=== PATIENT | female | born 1985 | race Caucasian/White ===

== ENCOUNTER 2017-01-16 06:52 | Emergency (ER) | payer OTHER ==
[2017-01-16 07:57] LABS: BASO % 0.3 % (0.0-1.0); EOS # 0.1 K/mm3 (0.0-0.50); EOS % 0.6 % (0.0-3.0); LARGE UNSTAINED CELL # 0.1 K/mm3 (0.0-0.4); LARGE UNSTAINED CELL % 1.2 % (0.0-4.0); LYMPH # 0.8 K/mm3 (1.5-4.5); LYMPH % 8.2 % (24.0-44.0); MEAN CORPUSCULAR HEMOGLOBIN 28.8 pg (27.0-33.0); MEAN CORPUSCULAR HGB CONC 33.1 g/dl (32.0-36.5); MONO # 0.5 K/mm3 (0.0-0.8); MONO % 4.9 % (0.0-5.0); NEUTROPHILS # 7.8 K/mm3 (1.8-7.7); NEUTROPHILS % 84.7 % (36.0-66.0); PLATELET COUNT, AUTOMATED 257 k/mm3 (150-450); RED CELL DISTRIBUTION WIDTH 12.2 % (11.5-14.5); WHITE BLOOD COUNT 9.2 K/mm3 (4.0-10.0)
[2017-01-16 08:37] LABS: ANION GAP 9 MEQ/L (8-16); BLOOD UREA NITROGEN 9 MG/DL (7-18); CALCIUM LEVEL 8.4 MG/DL (8.5-10.1); CARBON DIOXIDE LEVEL 25 MEQ/L (21-32); CHLORIDE LEVEL 106 MEQ/L (98-107); CREATININE FOR GFR 0.79 MG/DL (0.55-1.02); GLOMERULAR FILTRATION RATE > 60.0 (>60); GLUCOSE, FASTING 87 MG/DL (70-105); HCG, SERUM QUANTITATIVE 20236 MIU/ML; SODIUM LEVEL 140 MEQ/L (136-145)
[2017-01-16] MEDS ORDERED: ACETAMINOPHEN TAB 650MG DOSE (2X325MG) As Ordered ONE (09:11)
--- NOTE | 2017-01-16 09:38 | REP ---
FIRST TRIMESTER ULTRASOUND: Real-time sonographic evaluation of the pelvis is performed utilizing transabdominal and endovaginal technique. The uterus measures 10.2 x 4.6 x 7.8 cm. The endometrium is markedly heterogeneous and thickened measuring 21 mm in maximum AP diameter. There is no intrauterine gestational sac identified. The right ovary measures 3.3 x 3.1 x 4.1 cm and the left ovary 3.9 x 2.0 x 3.4 cm. There is blood flow seen in each ovary with duplex Doppler evaluation, with no torsion, RI of the right ovary 0.56 and the left ovary 0.65. Cystic structure in the right ovary measures 2.8 x 2.6 x 2.5 cm probably representing a corpus luteum. A fibroid is seen in the uterus posteriorly measuring 2.9 x 2.6 x 2.7 cm. IMPRESSION: Markedly thickened heterogeneous endometrial echo complex. Small cystic structure, right ovary 2.8 x 2.6 x 2.5 cm may represent a corpus luteum. No other evidence of adnexal mass or free fluid. Findings may represent missed , very early intrauterine or ectopic . Suggest correlation with serial quantitative beta HCG values and followup ultrasound as necessary. Signed by Abdias Laws MD 01/16/2017 04:55 P
--- NOTE | 2017-01-16 10:58 | EDDOCDS ---
Physician Documentation [facility] Name: Elsa Gaston Age: 31 yrs Sex: Female : 1985 Arrival Date: 01/16/2017 Time: 06:52 Bed 15 Private MD: Disposition: 01/16/17 10:21 Discharged to Home/Self Care. Impression: Threatened . - Condition is Stable. - Discharge Instructions: Threatened Miscarriage, Pelvic Rest. - Medication Reconciliation, Local Pharmacy Hours form. - Follow up: MICHAEL Bowman; When: Tomorrow; Reason: Recheck today's complaints. - Problem is new. - Symptoms are unchanged. - Notes: You were seen in the ED for vaginal bleeding in the setting of your early and likely miscarriage. Bloodwork showed no acute findings. Ultrasound showed a thickened endometrium of the uterus and a possible copus luteum cyst but no other acute findings. We have discussed the case with Gabi Melgoza OB who has recommended that this is likely a miscarriage and you may return home to be seen by them at tomorrow's appointment. Rest, put nothing in the vagina. Return to the ED for any worsening abdominal pain, hgeavy bleeding, soaking a pad an hour, lightheadedness, loss of consciousness or any other concerns. Historical: - Allergies: no known allergies; - Home Meds: 1. Vitamin Oral once daily - PMHx: none; - PSHx: none; - Social history: Smoking status: Patient states was never smoker of tobacco. No barriers to communication noted, The patient speaks fluent Ukrainian, Speaks appropriately for age. - Family history: Not pertinent. - : The pt / caregiver states he / she is not on anticoagulants. Home medication list is obtained from the patient. - Exposure Risk Screening:: None identified. 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 6 in. (167.64 cm); Pain 0/10; 10:02 BP 104 / 60; Pulse 68; Resp 18; Pulse Ox 100% ; Pain 2/10; hs1 10:57 BP 102 / 69; Pulse 87; Resp 18; Temp 97.8; Pulse Ox 98% ; Pain 2/10; hs1 07:04 Body Mass Index 23.73 (66.68 kg, 167.64 cm) kc3 MDM: 07:40 IV Saline Lock ordered. br1 07:41 Set up pelvic ordered. br1 07:41 Undress patient ordered. br1 07:41 CBC with Diff Ordered. EDMS 07:41 BMP Ordered. EDMS 07:41 Hcg, Serum Quantitative Ordered. EDMS 07:41 Type & Screen Ordered. EDMS 07:42 GC & Chlamydia Amplification Ordered. EDMS 07:42 Wet Prep Ordered. EDMS 08:07 Ultrasound 1st Trimester Ordered. EDMS 08:11 Financial registration complete. lg 08:22 [facility] Payment Agreement was scanned into [employer] and attached to record. lg 08:50 CBC with Diff Reviewed. br1 08:50 BMP Reviewed. br1 08:50 Type & Screen Reviewed. br1 08:50 Hcg, Serum Quantitative Reviewed. br1 08:50 Wet Prep Reviewed. br1 08:53 TRANSVAGINAL US Ordered. EDMS 08:53 DUPLEX SCAN LIMITED (DOPPLER) Ordered. EDMS 09:11 Acetaminophen Tablet 650 mg PO once ordered. br1 09:55 GC & Chlamydia Amplification Reviewed. br1 Administered Medications: 09:13 Drug: Acetaminophen 650 mg [acetaminophen 325 mg tablet (2 tabs)] Route: PO; hs1 10:08 Follow up: Response: Pain is decreased hs1 Signatures: Dispatcher [employer] EDMS Benny Hearn, Reg Reg lg Devonte Hemphill MD MD br1 Siobhan Iglesias RN RN hs1 Luda Saleem,SUNDEEP RN kc3 The chart was reviewed and I authenticate all verbal orders and agree with the evaluation and treatment provided.Attachments: 08:22 [facility] Payment Agreement lg MTDD
--- NOTE | 2017-01-16 10:58 | EDDOCDS ---
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 Pt kc3 reports "expecting a miscarriage as my HCG numbers have been decreasing." Pt also reports has been having light bleeding since . Pt reports 8 weeks . Risk factors: The patient reports no loss of conciousness prior to arrival. This patient has not had a hysterectomy. This patient has not begun menopause. Adult Sepsis Screening: The patient does not have new or worsening altered mentation. Patient's respiratory rate is less than 22. Systolic blood pressure is greater than 100. Patient has a qSOFA score of 0- Negative Sepsis Screen. Suicide/Homicide risk assessment- the patient denies having any suicidal and/or homicidal ideations and does not present with any other emotional, behavioral or mental health complaints. 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 Transition of care: patient was not received from another setting of care. 07:02 Acuity: DEB Level 3 kc3 07:02 Method Of Arrival: Walkin/Carried/Asstd kc3 Triage Assessment: 07:06 General: Appears in no apparent distress, comfortable. Pain: Denies pain. Respiratory: kc3 Respiratory effort is even, unlabored. : Reports cramping vaginal bleeding that is bright red with clots heavy flow. 10:57 Pt Declines HIV testing. 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 Vitamin Oral once daily - PMHx: none; - PSHx: none; - Social history: Smoking status: Patient states was never smoker of tobacco. No barriers to communication noted, The patient speaks fluent Malian, Speaks appropriately for age. - Family history: Not pertinent. - : The pt / caregiver states he / she is not on anticoagulants. Home medication list is obtained from the patient. - Exposure Risk Screening:: None identified. Screenin:23 Screening information is obtained from the patient. Fall risk: No risks identified. hs1 Assistance ADL's: requires no assistance with activities of daily living. Abuse/DV Screen: The patient / caregiver reports he/she is: not in a situation that causes fear, pain or injury. Nutritional screening: No deficits noted. Advance Directives: There is no active DNR order. home support is adequate. Assessment: 07:22 General: Appears in no apparent distress, comfortable, Behavior is anxious, appropriate hs1 for age, cooperative. Neurological: No deficits noted. Respiratory: Airway is patent Respiratory effort is even, unlabored, Respiratory pattern is regular, symmetrical. : Reports vaginal bleeding that is bright red with clots heavy flow. Derm: Skin is pink, warm & dry. normal. 08:30 General: Appears in no apparent distress, Behavior is appropriate for age, cooperative. hs1 Respiratory: No deficits noted. : Reports vaginal bleeding that is bright red heavy flow. Derm: Skin is pink, warm & dry. normal. 09:13 General: Appears in no apparent distress, Behavior is appropriate for age, cooperative. hs1 Pain: Location: pelvis Pain currently is 3 out of 10 on a pain scale. Quality of pain is described as crampy. Respiratory: No deficits noted. : Reports vaginal bleeding that is with clots heavy flow. Derm: Skin is pink, warm & dry. normal. 10:03 General: Appears in no apparent distress, comfortable, Behavior is anxious, hs1 cooperative, Patient awaiting test results, appears comfortable somewhat anxious at times. Patient states cramping comes and goes. . Respiratory: Airway is patent Respiratory effort is even, unlabored, Respiratory pattern is regular, symmetrical. GI: Abdomen is flat, non- distended Bowel sounds present X 4 quads. Derm: Skin is pink, warm & dry. normal. 10:55 General: Appears in no apparent distress, comfortable, Behavior is cooperative. hs1 Respiratory: No deficits noted. : Reports vaginal bleeding that is bright red with clots heavy flow. Vital Signs: 07:04 BP 122 / 71; Pulse 82; Resp 18; Temp 98.4(O); Pulse Ox 100% on R/A; Weight 66.68 kg; kc3 Height 5 ft. 6 in. (167.64 cm); Pain 0/10; 10:02 BP 104 / 60; Pulse 68; Resp 18; Pulse Ox 100% ; Pain 2/10; hs1 10:57 BP 102 / 69; Pulse 87; Resp 18; Temp 97.8; Pulse Ox 98% ; Pain 2/10; hs1 07:04 Body Mass Index 23.73 (66.68 kg, 167.64 cm) [facility] Vitals: 07:04 Log In Time: January 16, 2017 at 07:04. 3 ED Course: 06:53 Patient visited by Sofie Ramos Reg. hs2 06:53 Patient moved to Waiting hs2 07:03 Triage Initiated kc3 07:07 Patient moved to MTA Wait kc3 07:11 Patient moved to 15 hs1 07:23 The patient / caregiver is instructed regarding the plan of care and ED course. hs1 07:39 Devonte Hemphill MD is Attending Physician. br1 07:40 Inserted saline lock: 20 gauge in left antecubital area and blood collected. The hs1 patient tolerated the procedure well. 07:46 Patient visited by Siobhan Iglesias RN. hs1 07:46 Hcg, Serum Quantitative Sent. hs1 07:46 Type & Screen Sent. hs1 07:46 BMP Sent. hs1 07:46 CBC with Diff Sent. hs1 07:51 Patient visited by Devonte Hemphill MD. br1 08:00 Assist provider with pelvic exam: Set up pelvic tray. Specimens sent to lab. Performed hs1 by Devonte Hemphill MD Patient tolerated well. 08:09 GC & Chlamydia Amplification Sent. hs1 08:10 Wet Prep Sent. hs1 08:22 Patient name changed from Elsa\\S\\\\S\\Ly\\S\\ to Elsa\\S\\Kat\\S\\Ly. EDMS 08:22 [facility] Payment Agreement was scanned into [employer] and attached to record. lg 08:30 Patient visited by Siobhan Iglesias RN. hs1 08:40 Patient name changed from Elsa\\S\\Kat\\S\\Ly\\S\\ to Elsa\\S\\Kat\\S\\Marilin. EDMS 09:13 Patient visited by Siobhan Iglesias RN. hs1 10:03 Patient visited by Siobhan Iglesias RN. hs1 10:04 Ultrasound 1st Trimester Returned. EDMS 10:21 Gabi Melgoza OB is Referral Physician. br1 10:54 Discontinued IV lock intact, bleeding controlled, pressure dressing applied, No hs1 redness/swelling at site. Administered Medications: 09:13 Drug: Acetaminophen 650 mg [acetaminophen 325 mg tablet (2 tabs)] Route: PO; hs1 10:08 Follow up: Response: Pain is decreased hs1 Order Results: Lab Order: CBC with Diff; SPEC'M 01/16/17 07:40 Test: WHITE BLOOD COUNT; Value: 9.2; Range: 4.0-10.0; Units: K/mm3; Status: F Test: RED BLOOD COUNT; Value: 4.28; Range: 4.00-5.40; Units: M/mm3; Status: F Test: HEMOGLOBIN; Value: 12.3; Range: 12.0-16.0; Units: g/dl; Status: F Test: HEMATOCRIT; Value: 37.2; Range: 36.0-47.0; Units: %; Status: F Test: MEAN CORPUSCULAR VOLUME; Value: 87.0; Range: 80.0-96.0; Units: fl; Status: F Test: MEAN CORPUSCULAR HEMOGLOBIN; Value: 28.8; Range: 27.0-33.0; Units: pg; Status: F Test: MEAN CORPUSCULAR HGB CONC; Value: 33.1; Range: 32.0-36.5; Units: g/dl; Status: F Test: RED CELL DISTRIBUTION WIDTH; Value: 12.2; Range: 11.5-14.5; Units: %; Status: F Test: PLATELET COUNT, AUTOMATED; Value: 257; Range: 150-450; Units: k/mm3; Status: F Test: NEUTROPHILS %; Value: 84.7; Range: 36.0-66.0; Abnormal: Above high normal; Units: %; Status: F Test: LYMPH %; Value: 8.2; Range: 24.0-44.0; Abnormal: Below low normal; Units: %; Status: F Test: MONO %; Value: 4.9; Range: 0.0-5.0; Units: %; Status: F Test: EOS %; Value: 0.6; Range: 0.0-3.0; Units: %; Status: F Test: BASO %; Value: 0.3; Range: 0.0-1.0; Units: %; Status: F Test: LARGE UNSTAINED CELL %; Value: 1.2; Range: 0.0-4.0; Units: %; Status: F Test: NEUTROPHILS #; Value: 7.8; Range: 1.8-7.7; Abnormal: Above high normal; Units: K/mm3; Status: F Test: LYMPH #; Value: 0.8; Range: 1.5-4.5; Abnormal: Below low normal; Units: K/mm3; Status: F Test: MONO #; Value: 0.5; Range: 0.0-0.8; Units: K/mm3; Status: F Test: EOS #; Value: 0.1; Range: 0.0-0.50; Units: K/mm3; Status: F Test: BASO #; Value: 0.0; Range: 0.0-0.2; Units: K/mm3; Status: F Test: LARGE UNSTAINED CELL #; Value: 0.1; Range: 0.0-0.4; Units: K/mm3; Status: F Lab Order: [facility]; SPEC'M 01/16/17 07:40 Test: GLUCOSE, FASTING; Value: 87; Range: 70-105; Units: MG/DL; Status: F Test: BLOOD UREA NITROGEN; Value: 9; Range: 7-18; Units: MG/DL; Status: F Test: CREATININE FOR GFR; Value: 0.79; Range: 0.55-1.02; Units: MG/DL; Status: F Test: GLOMERULAR FILTRATION RATE; Value: > 60.0; Range: >60; Status: F Test: SODIUM LEVEL; Value: 140; Range: 136-145; Units: MEQ/L; Status: F Test: POTASSIUM SERUM; Value: 4.0; Range: 3.5-5.1; Units: MEQ/L; Status: F Test: CHLORIDE LEVEL; Value: 106; Range: 98-107; Units: MEQ/L; Status: F Test: CARBON DIOXIDE LEVEL; Value: 25; Range: 21-32; Units: MEQ/L; Status: F Test: ANION GAP; Value: 9; Range: 8-16; Units: MEQ/L; Status: F Test: CALCIUM LEVEL; Value: 8.4; Range: 8.5-10.1; Abnormal: Below low normal; Units: MG/DL; Status: F Test Note: ; Units are mL/min/1.73 m2 Chronic Kidney Disease Staging per NKF: Stage I & II GFR >=60 Normal to Mildly Decreased Stage III GFR 30-59 Moderately Decreased Stage IV GFR 15-29 Severely Decreased Stage V GFR <15 Very Little GFR Left ESRD GFR <15 on [employer] Lab Order: Type & Screen; [facility]01/16/17 07:40 Test: BLOOD TYPE; Value: O POS; Status: F Test: AB SCREEN (INDIRECT DAVID)VIS; Value: NEGATIVE; Status: F Lab Order: Hcg, Serum Quantitative; 01/16/17 07:40 Test: HCG, SERUM QUANTITATIVE; Value: ; Units: MIU/ML; Status: F Test Note: ; GESTATIONAL AGE APPROXIMATE HCG RANGE (MIU/ML) 0.2-1 WEEK 5-50 1-2 WEEKS 50-500 2-3 WEEKS 100-5,000 3-4 WEEKS 500-10,000 4-5 WEEKS 1,000-50,000 5-6 WEEKS 10,000-100,000 6-8 WEEKS 15,000-200,000 2-3 MONTHS 10,000-100,000 NON FEMALES LESS THAN 3.0 Patient samples may contain human heterophilic antibodies that could react with immunoassays to give falsely elevated or depressed results. This assay has been designed to minimize interference from heterophilic antibodies. Elevated hCG levels have also been associated with trophoblastic disease and nontrophoblastic neoplasms. The possibility of having these diseases should be considered before a diagnosis of is made. This test is not intended for use as a surrogate marker for aiding in the diagnosis or monitoring the treatment of cancer patients. [employer] methodology. Lab Order: Wet Prep; [facility]01/16/17 08:08 Test: WET PREP; Value: WET PREP RESULT; Status: F Test: WET PREP; Value: FEW EPITHELIAL CELLS PRESENT; Status: F Test: WET PREP; Value: FEW WBC; Status: F Test: WET PREP; Value: MANY RBC; Status: F Test: WET PREP; Value: FEW LONG RODS PRESENT; Status: F Lab Order: GC & Chlamydia Amplification; SPEC'M 01/16/17 08:08 Test: CHLAMYDIA DNA AMPLIFICATION; Value: NEGATIVE; Range: NEGATIVE; Status: F Test: GC DNA AMPLIFICATION; Value: NEGATIVE; Range: NEGATIVE; Status: F Radiology Order: Ultrasound 1st Trimester Test: Ultrasound 1st Trimester REASON FOR EXAMINATION: vag bleeding eval for IUP; ; FIRST TRIMESTER ULTRASOUND:; ; Real-time sonographic evaluation of the pelvis is performed utilizing; transabdominal and endovaginal technique.; ; The uterus measures 10.2 x 4.6 x 7.8 cm. The endometrium is markedly; heterogeneous and thickened measuring 21 mm in maximum AP diameter. There is no; intrauterine gestational sac identified. The right ovary measures 3.3 x 3.1 x; 4.1 cm and the left ovary 3.9 x 2.0 x 3.4 cm. There is blood flow seen in each; ovary with duplex Doppler evaluation, with no torsion, RI of the right ovary 0.56; and the left ovary 0.65. Cystic structure in the right ovary measures 2.8 x 2.6; x 2.5 cm probably representing a corpus luteum. A fibroid is seen in the uterus; posteriorly measuring 2.9 x 2.6 x 2.7 cm.; ; IMPRESSION:; Markedly thickened heterogeneous endometrial echo complex. Small cystic; structure, right ovary 2.8 x 2.6 x 2.5 cm may represent a corpus luteum. No other; evidence of adnexal mass or free fluid. Findings may represent missed ,; very early intrauterine or ectopic . Suggest correlation with; serial quantitative beta HCG values and followup ultrasound as necessary.; ; ; ; Unreviewed; Outcome: 10:21 Discharge ordered by Provider. br1 10:55 Discharge Assessment: Patient awake, alert and oriented x 3. No cognitive and/or hs1 functional deficits noted. Patient verbalized understanding of disposition instructions. patient administered narcotics - no. The following High Risk Discharge criteria are identified: None. Discharged to home ambulatory. Condition: stable. Discharge instructions given to patient, Instructed on discharge instructions, follow up and referral plans. medication usage, Pelvic rest. Patient also offered bereavement packed on miscarriage which patient declines at this time. Patient is aware of diagnosis and prognosis and states good support system at home in place. Ultrasound Study completed. Property sent home with patient. 10:58 Patient left the ED. hs1 Signatures: Dispatcher [employer] Benny Rojas, Reg Reg lg Devonte Hemphill MD MD br1 Siobhan Iglesias RN RN hs1 Luda Saleem RN RN kc3 Sofie Ramos, Reg Reg hs2 MTDD
--- NOTE | 2017-01-18 11:59 | EDDOCDS ---
Physician Documentation [facility] Name: Elsa Gaston Age: 31 yrs Sex: Female : 1985 Arrival Date: 01/16/2017 Time: 06:52 Bed 15 Private MD: Disposition: 01/16/17 10:21 Discharged to Home/Self Care. Impression: Threatened . - Condition is Stable. - Discharge Instructions: Threatened Miscarriage, Pelvic Rest. - Medication Reconciliation, Local Pharmacy Hours form. - Follow up: MICHAEL Bowman; When: Tomorrow; Reason: Recheck today's complaints. - Problem is new. - Symptoms are unchanged. - Notes: You were seen in the ED for vaginal bleeding in the setting of your early and likely miscarriage. Bloodwork showed no acute findings. Ultrasound showed a thickened endometrium of the uterus and a possible copus luteum cyst but no other acute findings. We have discussed the case with Gabi Melgoza OB who has recommended that this is likely a miscarriage and you may return home to be seen by them at tomorrow's appointment. Rest, put nothing in the vagina. Return to the ED for any worsening abdominal pain, hgeavy bleeding, soaking a pad an hour, lightheadedness, loss of consciousness or any other concerns. Historical: - Allergies: no known allergies; - Home Meds: 1. Vitamin Oral once daily - PMHx: none; - PSHx: none; - Social history: Smoking status: Patient states was never smoker of tobacco. No barriers to communication noted, The patient speaks fluent Georgian, Speaks appropriately for age. - Family history: Not pertinent. - : The pt / caregiver states he / she is not on anticoagulants. Home medication list is obtained from the patient. - Exposure Risk Screening:: None identified. 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 6 in. (167.64 cm); Pain 0/10; 10:02 BP 104 / 60; Pulse 68; Resp 18; Pulse Ox 100% ; Pain 2/10; hs1 10:57 BP 102 / 69; Pulse 87; Resp 18; Temp 97.8; Pulse Ox 98% ; Pain 2/10; hs1 07:04 Body Mass Index 23.73 (66.68 kg, 167.64 cm) kc3 MDM: 07:40 IV Saline Lock ordered. br1 07:41 Set up pelvic ordered. br1 07:41 Undress patient ordered. br1 07:41 CBC with Diff Ordered. EDMS 07:41 BMP Ordered. EDMS 07:41 Hcg, Serum Quantitative Ordered. EDMS 07:41 Type & Screen Ordered. EDMS 07:42 GC & Chlamydia Amplification Ordered. EDMS 07:42 Wet Prep Ordered. EDMS 08:07 Ultrasound 1st Trimester Ordered. EDMS 08:11 Financial registration complete. lg 08:22 [facility] Payment Agreement was scanned into [employer] and attached to record. lg 08:50 CBC with Diff Reviewed. br1 08:50 BMP Reviewed. br1 08:50 Type & Screen Reviewed. br1 08:50 Hcg, Serum Quantitative Reviewed. br1 08:50 Wet Prep Reviewed. br1 08:53 TRANSVAGINAL US Ordered. EDMS 08:53 DUPLEX SCAN LIMITED (DOPPLER) Ordered. EDMS 09:11 Acetaminophen Tablet 650 mg PO once ordered. br1 09:55 GC & Chlamydia Amplification Reviewed. br1 Administered Medications: 09:13 Drug: Acetaminophen 650 mg [acetaminophen 325 mg tablet (2 tabs)] Route: PO; hs1 10:08 Follow up: Response: Pain is decreased hs1 Signatures: Dispatcher [employer] EDMS Benny Hearn, Reg Reg lg Devonte Hemphill MD MD br1 Siobhan Iglesias RN RN hs1 Luda Saleem,SUNDEEP RN kc3 The chart was reviewed and I authenticate all verbal orders and agree with the evaluation and treatment provided.Attachments: 08:22 [facility] Payment Agreement lg Chart Complete MTDD
--- NOTE | 2017-01-18 11:59 | EDDOCDS ---
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 Pt kc3 reports "expecting a miscarriage as my HCG numbers have been decreasing." Pt also reports has been having light bleeding since . Pt reports 8 weeks . Risk factors: The patient reports no loss of conciousness prior to arrival. This patient has not had a hysterectomy. This patient has not begun menopause. Adult Sepsis Screening: The patient does not have new or worsening altered mentation. Patient's respiratory rate is less than 22. Systolic blood pressure is greater than 100. Patient has a qSOFA score of 0- Negative Sepsis Screen. Suicide/Homicide risk assessment- the patient denies having any suicidal and/or homicidal ideations and does not present with any other emotional, behavioral or mental health complaints. 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 Transition of care: patient was not received from another setting of care. 07:02 Acuity: DEB Level 3 kc3 07:02 Method Of Arrival: Walkin/Carried/Asstd kc3 Triage Assessment: 07:06 General: Appears in no apparent distress, comfortable. Pain: Denies pain. Respiratory: kc3 Respiratory effort is even, unlabored. : Reports cramping vaginal bleeding that is bright red with clots heavy flow. 10:57 Pt Declines HIV testing. 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 Vitamin Oral once daily - PMHx: none; - PSHx: none; - Social history: Smoking status: Patient states was never smoker of tobacco. No barriers to communication noted, The patient speaks fluent Ivorian, Speaks appropriately for age. - Family history: Not pertinent. - : The pt / caregiver states he / she is not on anticoagulants. Home medication list is obtained from the patient. - Exposure Risk Screening:: None identified. Screenin:23 Screening information is obtained from the patient. Fall risk: No risks identified. hs1 Assistance ADL's: requires no assistance with activities of daily living. Abuse/DV Screen: The patient / caregiver reports he/she is: not in a situation that causes fear, pain or injury. Nutritional screening: No deficits noted. Advance Directives: There is no active DNR order. home support is adequate. Assessment: 07:22 General: Appears in no apparent distress, comfortable, Behavior is anxious, appropriate hs1 for age, cooperative. Neurological: No deficits noted. Respiratory: Airway is patent Respiratory effort is even, unlabored, Respiratory pattern is regular, symmetrical. : Reports vaginal bleeding that is bright red with clots heavy flow. Derm: Skin is pink, warm & dry. normal. 08:30 General: Appears in no apparent distress, Behavior is appropriate for age, cooperative. hs1 Respiratory: No deficits noted. : Reports vaginal bleeding that is bright red heavy flow. Derm: Skin is pink, warm & dry. normal. 09:13 General: Appears in no apparent distress, Behavior is appropriate for age, cooperative. hs1 Pain: Location: pelvis Pain currently is 3 out of 10 on a pain scale. Quality of pain is described as crampy. Respiratory: No deficits noted. : Reports vaginal bleeding that is with clots heavy flow. Derm: Skin is pink, warm & dry. normal. 10:03 General: Appears in no apparent distress, comfortable, Behavior is anxious, hs1 cooperative, Patient awaiting test results, appears comfortable somewhat anxious at times. Patient states cramping comes and goes. . Respiratory: Airway is patent Respiratory effort is even, unlabored, Respiratory pattern is regular, symmetrical. GI: Abdomen is flat, non- distended Bowel sounds present X 4 quads. Derm: Skin is pink, warm & dry. normal. 10:55 General: Appears in no apparent distress, comfortable, Behavior is cooperative. hs1 Respiratory: No deficits noted. : Reports vaginal bleeding that is bright red with clots heavy flow. Vital Signs: 07:04 BP 122 / 71; Pulse 82; Resp 18; Temp 98.4(O); Pulse Ox 100% on R/A; Weight 66.68 kg; kc3 Height 5 ft. 6 in. (167.64 cm); Pain 0/10; 10:02 BP 104 / 60; Pulse 68; Resp 18; Pulse Ox 100% ; Pain 2/10; hs1 10:57 BP 102 / 69; Pulse 87; Resp 18; Temp 97.8; Pulse Ox 98% ; Pain 2/10; hs1 07:04 Body Mass Index 23.73 (66.68 kg, 167.64 cm) [facility] Vitals: 07:04 Log In Time: January 16, 2017 at 07:04. 3 ED Course: 06:53 Patient visited by Sofie Ramos Reg. hs2 06:53 Patient moved to Waiting hs2 07:03 Triage Initiated kc3 07:07 Patient moved to MTA Wait kc3 07:11 Patient moved to 15 hs1 07:23 The patient / caregiver is instructed regarding the plan of care and ED course. hs1 07:39 Devonte Hemphill MD is Attending Physician. br1 07:40 Inserted saline lock: 20 gauge in left antecubital area and blood collected. The hs1 patient tolerated the procedure well. 07:46 Patient visited by Siobhan Iglesias RN. hs1 07:46 Hcg, Serum Quantitative Sent. hs1 07:46 Type & Screen Sent. hs1 07:46 BMP Sent. hs1 07:46 CBC with Diff Sent. hs1 07:51 Patient visited by Devonte Hemphill MD. br1 08:00 Assist provider with pelvic exam: Set up pelvic tray. Specimens sent to lab. Performed hs1 by Devonte Hemphill MD Patient tolerated well. 08:09 GC & Chlamydia Amplification Sent. hs1 08:10 Wet Prep Sent. hs1 08:22 Patient name changed from Elsa\\S\\\\S\\Ly\\S\\ to Elsa\\S\\Kat\\S\\Ly. EDMS 08:22 [facility] [place] into [employer] and attached to record. lg 08:30 Patient visited by Siobhan Iglesias RN. hs1 08:40 Patient name changed from Elsa\\S\\Kat\\S\\Ly\\S\\ to Elsa\\S\\Kat\\S\\Marilin. EDMS 09:13 Patient visited by Siobhan Iglesias RN. hs1 10:03 Patient visited by Siobhan Iglesias RN. hs1 10:04 Ultrasound 1st Trimester Returned. EDMS 10:21 Gabi Melgoza OB is Referral Physician. br1 10:54 Discontinued IV lock intact, bleeding controlled, pressure dressing applied, No hs1 redness/swelling at site. Administered Medications: 09:13 Drug: Acetaminophen 650 mg [acetaminophen 325 mg tablet (2 tabs)] Route: PO; hs1 10:08 Follow up: Response: Pain is decreased hs1 Order Results: Lab Order: CBC with Diff; SPEC'M 01/16/17 07:40 Test: WHITE BLOOD COUNT; Value: 9.2; Range: 4.0-10.0; Units: K/mm3; Status: F Test: RED BLOOD COUNT; Value: 4.28; Range: 4.00-5.40; Units: M/mm3; Status: F Test: HEMOGLOBIN; Value: 12.3; Range: 12.0-16.0; Units: g/dl; Status: F Test: HEMATOCRIT; Value: 37.2; Range: 36.0-47.0; Units: %; Status: F Test: MEAN CORPUSCULAR VOLUME; Value: 87.0; Range: 80.0-96.0; Units: fl; Status: F Test: MEAN CORPUSCULAR HEMOGLOBIN; Value: 28.8; Range: 27.0-33.0; Units: pg; Status: F Test: MEAN CORPUSCULAR HGB CONC; Value: 33.1; Range: 32.0-36.5; Units: g/dl; Status: F Test: RED CELL DISTRIBUTION WIDTH; Value: 12.2; Range: 11.5-14.5; Units: %; Status: F Test: PLATELET COUNT, AUTOMATED; Value: 257; Range: 150-450; Units: k/mm3; Status: F Test: NEUTROPHILS %; Value: 84.7; Range: 36.0-66.0; Abnormal: Above high normal; Units: %; Status: F Test: LYMPH %; Value: 8.2; Range: 24.0-44.0; Abnormal: Below low normal; Units: %; Status: F Test: MONO %; Value: 4.9; Range: 0.0-5.0; Units: %; Status: F Test: EOS %; Value: 0.6; Range: 0.0-3.0; Units: %; Status: F Test: BASO %; Value: 0.3; Range: 0.0-1.0; Units: %; Status: F Test: LARGE UNSTAINED CELL %; Value: 1.2; Range: 0.0-4.0; Units: %; Status: F Test: NEUTROPHILS #; Value: 7.8; Range: 1.8-7.7; Abnormal: Above high normal; Units: K/mm3; Status: F Test: LYMPH #; Value: 0.8; Range: 1.5-4.5; Abnormal: Below low normal; Units: K/mm3; Status: F Test: MONO #; Value: 0.5; Range: 0.0-0.8; Units: K/mm3; Status: F Test: EOS #; Value: 0.1; Range: 0.0-0.50; Units: K/mm3; Status: F Test: BASO #; Value: 0.0; Range: 0.0-0.2; Units: K/mm3; Status: F Test: LARGE UNSTAINED CELL #; Value: 0.1; Range: 0.0-0.4; Units: K/mm3; Status: F Lab Order: [facility]; SPEC'M 01/16/17 07:40 Test: GLUCOSE, FASTING; Value: 87; Range: 70-105; Units: MG/DL; Status: F Test: BLOOD UREA NITROGEN; Value: 9; Range: 7-18; Units: MG/DL; Status: F Test: CREATININE FOR GFR; Value: 0.79; Range: 0.55-1.02; Units: MG/DL; Status: F Test: GLOMERULAR FILTRATION RATE; Value: > 60.0; Range: >60; Status: F Test: SODIUM LEVEL; Value: 140; Range: 136-145; Units: MEQ/L; Status: F Test: POTASSIUM SERUM; Value: 4.0; Range: 3.5-5.1; Units: MEQ/L; Status: F Test: CHLORIDE LEVEL; Value: 106; Range: 98-107; Units: MEQ/L; Status: F Test: CARBON DIOXIDE LEVEL; Value: 25; Range: 21-32; Units: MEQ/L; Status: F Test: ANION GAP; Value: 9; Range: 8-16; Units: MEQ/L; Status: F Test: CALCIUM LEVEL; Value: 8.4; Range: 8.5-10.1; Abnormal: Below low normal; Units: MG/DL; Status: F Test Note: ; Units are mL/min/1.73 m2 Chronic Kidney Disease Staging per NKF: Stage I & II GFR >=60 Normal to Mildly Decreased Stage III GFR 30-59 Moderately Decreased Stage IV GFR 15-29 Severely Decreased Stage V GFR <15 Very Little GFR Left ESRD GFR <15 on PRODUCT MARKETING COORDINATOR Lab Order: Type & Screen; [facility]01/16/17 07:40 Test: BLOOD TYPE; Value: O POS; Status: F Test: AB SCREEN (INDIRECT DAVID)VIS; Value: NEGATIVE; Status: F Lab Order: Hcg, Serum Quantitative; 01/16/17 07:40 Test: HCG, SERUM QUANTITATIVE; Value: ; Units: MIU/ML; Status: F Test Note: ; GESTATIONAL AGE APPROXIMATE HCG RANGE (MIU/ML) 0.2-1 WEEK 5-50 1-2 WEEKS 50-500 2-3 WEEKS 100-5,000 3-4 WEEKS 500-10,000 4-5 WEEKS 1,000-50,000 5-6 WEEKS 10,000-100,000 6-8 WEEKS 15,000-200,000 2-3 MONTHS 10,000-100,000 NON FEMALES LESS THAN 3.0 Patient samples may contain human heterophilic antibodies that could react with immunoassays to give falsely elevated or depressed results. This assay has been designed to minimize interference from heterophilic antibodies. Elevated hCG levels have also been associated with trophoblastic disease and nontrophoblastic neoplasms. The possibility of having these diseases should be considered before a diagnosis of is made. This test is not intended for use as a surrogate marker for aiding in the diagnosis or monitoring the treatment of cancer patients. Siemens BuildDirect methodology. Lab Order: Wet Prep; [facility]01/16/17 08:08 Test: WET PREP; Value: WET PREP RESULT; Status: F Test: WET PREP; Value: FEW EPITHELIAL CELLS PRESENT; Status: F Test: WET PREP; Value: FEW WBC; Status: F Test: WET PREP; Value: MANY RBC; Status: F Test: WET PREP; Value: FEW LONG RODS PRESENT; Status: F Lab Order: GC & Chlamydia Amplification; SPEC'M 01/16/17 08:08 Test: CHLAMYDIA DNA AMPLIFICATION; Value: NEGATIVE; Range: NEGATIVE; Status: F Test: GC DNA AMPLIFICATION; Value: NEGATIVE; Range: NEGATIVE; Status: F Radiology Order: Ultrasound 1st Trimester Test: Ultrasound 1st Trimester REASON FOR EXAMINATION: vag bleeding eval for IUP; FIRST TRIMESTER ULTRASOUND:; ; Real-time sonographic evaluation of the pelvis is performed utilizing; transabdominal and endovaginal technique.; ; The uterus measures 10.2 x 4.6 x 7.8 cm. The endometrium is markedly; heterogeneous and thickened measuring 21 mm in maximum AP diameter. There is no; intrauterine gestational sac identified. The right ovary measures 3.3 x 3.1 x; 4.1 cm and the left ovary 3.9 x 2.0 x 3.4 cm. There is blood flow seen in each; ovary with duplex Doppler evaluation, with no torsion, RI of the right ovary 0.56; and the left ovary 0.65. Cystic structure in the right ovary measures 2.8 x 2.6; x 2.5 cm probably representing a corpus luteum. A fibroid is seen in the uterus; posteriorly measuring 2.9 x 2.6 x 2.7 cm.; ; IMPRESSION:; ; Markedly thickened heterogeneous endometrial echo complex. Small cystic; structure, right ovary 2.8 x 2.6 x 2.5 cm may represent a corpus luteum. No other; evidence of adnexal mass or free fluid. Findings may represent missed ,; very early intrauterine or ectopic . Suggest correlation with; serial quantitative beta HCG values and followup ultrasound as necessary.; ; ; Signed by; Abdias Laws MD 01/16/2017 04:55 P; Outcome: 10:21 Discharge ordered by Provider. br1 10:55 Discharge Assessment: Patient awake, alert and oriented x 3. No cognitive and/or hs1 functional deficits noted. Patient verbalized understanding of disposition instructions. patient administered narcotics - no. The following High Risk Discharge criteria are identified: None. Discharged to home ambulatory. Condition: stable. Discharge instructions given to patient, Instructed on discharge instructions, follow up and referral plans. medication usage, Pelvic rest. Patient also offered bereavement packed on miscarriage which patient declines at this time. Patient is aware of diagnosis and prognosis and states good support system at home in place. Ultrasound Study completed. Property sent home with patient. 10:58 Patient left the ED. hs1 Signatures: Dispatcher [employer] Benny Rojas, Reg Reg lg Devonte Hemphill MD MD br1 Siobhan Iglesias RN RN hs1 Luda Saleem RN RN kc3 Sofie Ramos, Reg Reg hs2 Chart Complete MTDD
--- NOTE | 2017-01-18 11:59 | EDDOCDS ---
Physician Documentation [facility] Name: Elsa Gaston Age: 31 yrs Sex: Female : 1985 Arrival Date: 01/16/2017 Time: 06:52 Bed 15 Private MD: Disposition: 01/16/17 10:21 Discharged to Home/Self Care. Impression: Threatened . - Condition is Stable. - Discharge Instructions: Threatened Miscarriage, Pelvic Rest. - Medication Reconciliation, Local Pharmacy Hours form. - Follow up: MICHAEL Bowman; When: Tomorrow; Reason: Recheck today's complaints. - Problem is new. - Symptoms are unchanged. - Notes: You were seen in the ED for vaginal bleeding in the setting of your early and likely miscarriage. Bloodwork showed no acute findings. Ultrasound showed a thickened endometrium of the uterus and a possible copus luteum cyst but no other acute findings. We have discussed the case with Gabi Melgoza OB who has recommended that this is likely a miscarriage and you may return home to be seen by them at tomorrow's appointment. Rest, put nothing in the vagina. Return to the ED for any worsening abdominal pain, hgeavy bleeding, soaking a pad an hour, lightheadedness, loss of consciousness or any other concerns. Historical: - Allergies: no known allergies; - Home Meds: 1. Vitamin Oral once daily - PMHx: none; - PSHx: none; - Social history: Smoking status: Patient states was never smoker of tobacco. No barriers to communication noted, The patient speaks fluent Slovenian, Speaks appropriately for age. - Family history: Not pertinent. - : The pt / caregiver states he / she is not on anticoagulants. Home medication list is obtained from the patient. - Exposure Risk Screening:: None identified. 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 6 in. (167.64 cm); Pain 0/10; 10:02 BP 104 / 60; Pulse 68; Resp 18; Pulse Ox 100% ; Pain 2/10; hs1 10:57 BP 102 / 69; Pulse 87; Resp 18; Temp 97.8; Pulse Ox 98% ; Pain 2/10; hs1 07:04 Body Mass Index 23.73 (66.68 kg, 167.64 cm) kc3 MDM: 07:40 IV Saline Lock ordered. br1 07:41 Set up pelvic ordered. br1 07:41 Undress patient ordered. br1 07:41 CBC with Diff Ordered. EDMS 07:41 BMP Ordered. EDMS 07:41 Hcg, Serum Quantitative Ordered. EDMS 07:41 Type & Screen Ordered. EDMS 07:42 GC & Chlamydia Amplification Ordered. EDMS 07:42 Wet Prep Ordered. EDMS 08:07 Ultrasound 1st Trimester Ordered. EDMS 08:11 Financial registration complete. lg 08:22 [facility] Payment Agreement was scanned into [employer] and attached to record. lg 08:50 CBC with Diff Reviewed. br1 08:50 BMP Reviewed. br1 08:50 Type & Screen Reviewed. br1 08:50 Hcg, Serum Quantitative Reviewed. br1 08:50 Wet Prep Reviewed. br1 08:53 TRANSVAGINAL US Ordered. EDMS 08:53 DUPLEX SCAN LIMITED (DOPPLER) Ordered. EDMS 09:11 Acetaminophen Tablet 650 mg PO once ordered. br1 09:55 GC & Chlamydia Amplification Reviewed. br1 Administered Medications: 09:13 Drug: Acetaminophen 650 mg [acetaminophen 325 mg tablet (2 tabs)] Route: PO; hs1 10:08 Follow up: Response: Pain is decreased hs1 Signatures: Dispatcher [employer] EDMS Benny Hearn, Reg Reg lg Devonte Hemphill MD MD br1 Siobhan Iglesias RN RN hs1 Luda Saleem,SUNDEEP RN kc3 The chart was reviewed and I authenticate all verbal orders and agree with the evaluation and treatment provided.Attachments: 08:22 [facility] Payment Agreement lg Chart Complete MTDD
== END 2017-01-16 10:58 | disposition home or self-care (01) ==
LOC: M ED 06:52
DX: O20.0 Threatened abortion (principal); Z3A.08 8 weeks gestation of pregnancy

== ENCOUNTER → 2017-01-27 | Day surgery (SDC) | payer OTHER ==
[~2017-01-27] VITALS: Ht 167.6 cm; Wt 69.9 kg
[~2017-01-27] MED LIST: ACETAMINOPHEN 650 MG SUPP PR ONE; HYDROmorphone HCL 1 MG/ML SYRINGE (J1170) IV PRN; IBUPROFEN 600 MG TAB PO PRN; KETOROLAC 60 MG/2 ML VIAL (J1885) As Ordered ONE; LIDOCAINE 2% INJ 100 MG/5 ML SDV (FOR ANES.) As Ordered ONE; LR 1,000 ML IV SCH; MIDAZOLAM INJ 2 MG/2 ML VIAL (J2250) As Ordered ONE; ONDANSETRON 4MG/2ML VIAL (J2405) As Ordered ONE; ONDANSETRON 4MG/2ML VIAL (J2405) IV PRN; PERCOCET 5MG/325MG TAB PO PRN; PRENTAB55 PO; PROPOFOL 200 MG/20 ML VIAL As Ordered ONE; TYLE325C PO; dexameTHASONE 4 MG/ML 1ML VIAL (J1100) As Ordered ONE; fentaNYL 100 MCG/2 ML INJECTION (J3010) As Ordered ONE; fentaNYL 100 MCG/2 ML INJECTION (J3010) IV PRN
[2017-01-27 12:00] LABS: MEAN CORPUSCULAR HEMOGLOBIN 28.7 pg (27.0-33.0); MEAN CORPUSCULAR HGB CONC 32.5 g/dl (32.0-36.5); MEAN CORPUSCULAR VOLUME 88.4 fl (80.0-96.0); RED CELL DISTRIBUTION WIDTH 12.7 % (11.5-14.5); WHITE BLOOD COUNT 5.3 K/mm3 (4.0-10.0)
[2017-01-27 12:16] LABS: ANION GAP 9 MEQ/L (8-16); BLOOD UREA NITROGEN 13 MG/DL (7-18); CALCIUM LEVEL 8.7 MG/DL (8.5-10.1); CARBON DIOXIDE LEVEL 26 MEQ/L (21-32); CHLORIDE LEVEL 106 MEQ/L (98-107); CREATININE FOR GFR 0.74 MG/DL (0.55-1.02); GLOMERULAR FILTRATION RATE > 60.0 (>60); GLUCOSE, FASTING 79 MG/DL (70-105); HCG, SERUM QUANTITATIVE 173 MIU/ML; POTASSIUM SERUM 4.2 MEQ/L (3.5-5.1); SODIUM LEVEL 141 MEQ/L (136-145)
[2017-01-27 15:25] VITALS: BP 109/59
--- NOTE | 2017-01-29 10:36 | RO ---
DATE OF PROCEDURE: 01/27/2017 PREOPERATIVE DIAGNOSIS: Retained products of conception, missed . POSTOPERATIVE DIAGNOSIS: Retained products of conception, missed , cervical stenosis. OPERATION PROPOSED: Suction and curettage. OPERATION PERFORMED: Dilatation, suction and curettage. SURGEON: Rusty Duvall MD DELIVERY ROOM SUPERVISOR: ANESTHESIA: General. ESTIMATED BLOOD LOSS: 20 mL. DESCRIPTION OF PROCEDURE: Under adequate anesthesia, prepped and draped in the lithotomy position, bladder drained for 25 mL of clear urine, sequentials on board, time-out performed. Weighted speculum in vagina and a single-tooth tenaculum anterior lip of the cervix. The external os was quite opened. The internal loss was considerably stenotic and closed. We had some difficulty in procuring an opening, and I believe that is the reason that the retained products were present. Her last quantitative hCG was in the low 100s. We were able to dilate the cervix, suction, curettage on the number curved 8. Debris and remnants were sent to pathology under separate cover. Uterus is well contracted. Minimal blood loss. Bimanual examination to place the uterus in anatomical position. instruments removed and the patient was sent recovery in good condition. Rh positive, does not require RhoGAM.
== END ==
LOC: M SDC 11:23
PROVIDERS: ATTEND Obstetrics & Gynecology
DX: O02.1 Missed abortion (principal); O73.1 Retained portions of placenta and membranes, without hemorrhage; O26.891 Other specified pregnancy related conditions, first trimester; N88.2 Stricture and stenosis of cervix uteri; Z91.09 Other allergy status, other than to drugs and biological substances
CPT/HCPCS: 36415; 59820; 80048; 84702; 85027; 86850; 86900; 86901; 88305; J1100; J1885; J2250; J2405; J3010